=== PATIENT | male | born 1985 | race Caucasian/White ===

== ENCOUNTER 2017-04-05 14:19 | Inpatient (IN) | payer MEDICAID, OTHER ==
[2017-04-05 14:33] VITALS: BMI 28.4
--- NOTE | 2017-04-05 15:04 | C.PDOC ---
History Of Present Illness 31 y/o male with a hx of liver cirrhosis and ascites from alcohol abuse, presents to the ER c/o worsening abdominal distention. Patient admits that his last drink was 3 weeks prior. Denies fever, chills, chest pain, SOB, or any other complaints. Time Seen by Provider: 04/05/17 14:35 Chief Complaint (Nursing): Abdominal Pain History Per: Patient History/Exam Limitations: no limitations Onset/Duration Of Symptoms: Days Current Symptoms Are (Timing): Still Present Severity: Mild Associated Symptoms: denies: Fever, Chills Additional History Per: Patient Past Medical History Reviewed: Historical Data, Nursing Documentation, Vital Signs Vital Signs: Last Vital Signs Temp 97.9 F 04/05/17 14:38 Pulse 104 H 04/05/17 14:38 Resp 20 04/05/17 14:38 BP 117/76 04/05/17 14:38 Pulse Ox 97 04/05/17 16:20 - Medical History PMH: Denies: Chronic Kidney Disease - [facility] Procedures DRAINAGE OF PERITONEAL CAVITY, PERCUTANEOUS APPROACH (03/21/17) OCCLUSION ESOPHAGEAL VEIN W EXTRALUM DEV, PERC ENDO (03/21/17) Family History: States: Unknown Family Hx - Social History Hx Tobacco Use: No Hx Alcohol Use: Yes Hx Substance Use: No (last cocaine use 10 year ago) - Immunization History Hx Tetanus Toxoid Vaccination: No Hx Influenza Vaccination: No Hx Pneumococcal Vaccination: No Review Of Systems Except As Marked, All Systems Reviewed And Found Negative. Constitutional: Negative for: Fever, Chills Cardiovascular: Negative for: Chest Pain Respiratory: Negative for: Shortness of Breath Gastrointestinal: Positive for: Other (Abdominal distention) Physical Exam - Physical Exam Appears: Non-toxic, No Acute Distress Skin: Warm, Dry Head: Atraumatic, Normacephalic Eye(s): bilateral: Scleral Icterus Oral Mucosa: Moist Throat: Normal, No Erythema Chest: Symmetrical Cardiovascular: Rhythm Regular, No Murmur Respiratory: Normal Breath Sounds, No Rales, No Rhonchi, No Wheezing Gastrointestinal/Abdominal: Soft, No Tenderness, Distention Back: Normal Inspection, No CVA Tenderness Extremity: No Deformity, Swelling (Lower extremity swelling) Pulses: Left Dorsalis Pedis: Normal, Right Dorsalis Pedis: Normal Neurological/Psych: Oriented x3 ED Course And Treatment - Laboratory Results Result Diagrams: 04/05/17 15:38 04/05/17 15:38 Lab Interpretation: Abnormal ECG: Interpreted By Me ECG Rhythm: Sinus Rhythm ECG Interpretation: No Acute Changes Rate From EC O2 Sat by Pulse Oximetry: 97 (RA) Pulse Ox Interpretation: Normal - Radiology CXR: Viewed By Me, Read By Radiologist - Other Rad No standard instances X-Ray: Viewed By Me, Read By Radiologist Interpretation: FINDINGS: LUNGS: The right basilar infiltrate is appreciated in both frontal and lateral views with linear atelectasis identified at the left base versus fibrosis. No additional infiltrate otherwise. Cardiac size is upper limits normal. There is no pulmonary vascular derangement or pneumothorax identified. CARDIOVASCULAR: Normal. OSSEOUS STRUCTURES: No significant abnormalities. VISUALIZED UPPER ABDOMEN: Normal. OTHER FINDINGS: None. IMPRESSION: Limited right basilar infiltrate favored over atelectasis. Clinically correlate further. No pleural effusion bilaterally. Linear atelectasis or fibrosis left base. Progress Note: labs ordered Reassessment Condition: Unchanged - Physician Consult Information Physician Contacted: Charline Keller Outcome Of Conversation: admit Medical Decision Making Medical Decision Making: Plans: * EKG * Blood labs * CXR * IV fluids * UA Disposition Discussed With : Charline Keller Doctor Will See Patient In The: Hospital - Disposition Disposition: HOSPITALIZED Disposition Time: 16:20 Condition: STABLE - POA Present On Arrival: None - Clinical Impression Clinical Impression: Abdominal bloating, Coagulopathy, Liver failure, Ascites - Scribe Statement The provider has reviewed the documentation as recorded by the Aungibe Yessi Grey All medical record entries made by the Scribe were at my direction and personally dictated by me. I have reviewed the chart and agree that the record accurately reflects my personal performance of the history, physical exam, medical decision making, and the department course for this patient. I have also personally directed, reviewed, and agree with the discharge instructions and disposition. Decision To Admit - Pt Status Changed To: Hospital Disposition Of: Inpatient - Admit Certification Admit to Inpatient:: After my assessment, the patient will require hospitalization for at least two midnights. This is because of the severity of symptoms shown, intensity of services needed, and/or the medical risk in this patient being treated as an outpatient. - InPatient: Physician Admission Certification:: Ascites. coagulopathy - . Bed Request Type: Regular Admitting Physician: Charline Keller Patient Diagnosis: Abdominal bloating, Coagulopathy, Liver failure, Ascites
--- NOTE | 2017-04-05 15:36 | RAD ---
HISTORY: SOB COMPARISON: No prior. TECHNIQUE: Chest PA and lateral FINDINGS: LUNGS: The right basilar infiltrate is appreciated in both frontal and lateral views with linear atelectasis identified at the left base versus fibrosis. No additional infiltrate otherwise. Cardiac size is upper limits normal. There is no pulmonary vascular derangement or pneumothorax identified. CARDIOVASCULAR: Normal. OSSEOUS STRUCTURES: No significant abnormalities. VISUALIZED UPPER ABDOMEN: Normal. OTHER FINDINGS: None. IMPRESSION: Limited right basilar infiltrate favored over atelectasis. Clinically correlate further. No pleural effusion bilaterally. Linear atelectasis or fibrosis left base.
[2017-04-05 15:49] LABS: BASO # 0.1 K/uL (0.0-0.2); BASO % 1.1 % (0.0-2.0); EOS # 0.1 K/uL (0.0-0.7); EOS % 0.9 % (0.0-4.0); HEMATOCRIT 31.1 % (35.0-51.0); LYMPH # 0.7 K/uL (1.0-4.3); MEAN CORPUSCULAR HEMOGLOBIN 34.9 pg (27.0-31.0); MEAN CORPUSCULAR HGB CONC 33.9 g/dL (33.0-37.0); MEAN PLATELET VOLUME 9.6 fL (7.2-11.7); MONO # 1.2 K/uL (0.0-0.8); MONO % 13.3 % (0.0-10.0); PLATELET COUNT 138 K/uL (130-400); RED CELL DISTRIBUTION WIDTH 19.8 % (11.5-14.5); WHITE BLOOD COUNT 9.3 K/uL (4.8-10.8)
[2017-04-05 15:59] LABS: INR 2.3
[2017-04-05 16:24] LABS: ALB/GLOB RATIO 0.5 (1.0-2.1); ALCOHOL SERUM < 10 mg/dl (0-10); ALKALINE PHOSPHATASE 166 U/L (38-126); ALT/SGPT 74 U/L (21-72); AST/SGOT 146 U/L (17-59); BILIRUBIN,TOTAL 20.2 mg/dL (0.2-1.3); BLOOD UREA NITROGEN 12 mg/dL (9-20); CALCIUM 7.6 mg/dl (8.6-10.4); CARBON DIOXIDE 20 mmol/L (22-30); CHLORIDE 103 mmol/L (98-107); GFR AFRICAN-AMERICAN > 60; GLUCOSE,RANDOM 73 mg/dL (75-110); POTASSIUM 3.5 mmol/L (3.6-5.2); SODIUM 131 mmol/L (132-148); TOTAL PROTEIN 9.3 g/dL (6.3-8.3)
[2017-04-05 16:34] LABS: NEUTROPHIL 75 % (50-75); TOTAL CELLS COUNTED 100
[2017-04-05 16:35] LABS: LARGE PLATELETS PRESENT
--- NOTE | 2017-04-05 18:44 | CP.PCM.HP ---
<BartoloTiara - Last Filed: 04/05/17 18:55> History of Present Illness - History of Present Illness History of Present Illness: CC: "Fluid in my belly" HPI: 31 year old male with PMH liver cirrhosis 2/2 alcoholism presents to the ED for worsening ascites that started on Monday. Patient says he was here recently with the same thing and he had the fluid drained which made him feel much better. He admits to recent hospitalization at [facility] this week and says they gave him aldactone and lactulose and sent him home. Patient says he wants this drained again. He is also having some LE swelling that he says was here on last admission with cellulitis but the cellulitis has since resolved. Denies fever, nausea, vomiting, diarrhea or constipation, chest pain, dizziness , headache, shortness of breath, chest pain or abdominal pain. PMD: denies Past Medical History: Cirrhosis 2/2 alcoholism Past Surgical History: Denies Medications: aldactone 25 mg BID; Lactulose Allergies: NKDA Family History: Denies Social History: works as a cook 6x per week; previously one pint of vodka per day but says he quit after his last admission; denies smoking; per previous records, used cocaine in the past. Lives in an apartment alone. Present on Admission - Present on Admission Any Indicators Present on Admission: No Review of Systems - Review of Systems All systems: reviewed and no additional remarkable complaints except (as per HPI ) Past Patient History - Past Medical History & Family History Past Medical History?: Yes - Past Social History Smoking Status: Never Smoked - CARDIAC Hx Cardiac Disorders: No - PULMONARY Hx Respiratory Disorders: No - NEUROLOGICAL Hx Neurological Disorder: No - HEENT Hx HEENT Problems: No - RENAL Hx Chronic Kidney Disease: No - ENDOCRINE/METABOLIC Hx Endocrine Disorders: No - HEMATOLOGICAL/ONCOLOGICAL Hx Blood Disorders: No - INTEGUMENTARY Hx Dermatological Problems: No - MUSCULOSKELETAL/RHEUMATOLOGICAL Hx Musculoskeletal Disorders: No - GASTROINTESTINAL Hx Gastrointestinal Disorders: No - GENITOURINARY/GYNECOLOGICAL Hx Genitourinary Disorders: No - PSYCHIATRIC Hx Substance Use: No (last cocaine use 10 year ago) - SURGICAL HISTORY Hx Surgeries: No Hx Abdominal Aortic Aneurysm Repair: No - ANESTHESIA Hx Anesthesia: No Meds Allergies/Adverse Reactions: Allergies Allergy/AdvReac Type Severity Reaction Status Date / Time No Known Allergies Allergy Verified 03/20/17 21:33 Physical Exam - Constitutional Appears: Non-toxic, No Acute Distress - Head Exam Head Exam: ATRAUMATIC, NORMAL INSPECTION, NORMOCEPHALIC - Eye Exam Eye Exam: EOMI, Scleral icterus - Respiratory Exam Respiratory Exam: Clear to Auscultation Bilateral, NORMAL BREATHING PATTERN. absent: Accessory Muscle Use, Rales, Rhonchi, Wheezes, Respiratory Distress - Cardiovascular Exam Cardiovascular Exam: RRR, +S1, +S2. absent: Diastolic murmur, Gallop, Rubs, Systolic Murmur - GI/Abdominal Exam GI & Abdominal Exam: Distended, Normal Bowel Sounds, Soft. absent: Tenderness Additional comments: Ascites - Extremities Exam Extremities exam: Positive for: pedal edema. Negative for: calf tenderness - Neurological Exam Neurological exam: Alert, Oriented x3 - Psychiatric Exam Psychiatric exam: Normal Affect, Normal Mood - Skin Skin Exam: Dry, Intact, Warm Additional comments: Jaundice Results - Vital Signs Recent Vital Signs: Last Vital Signs Temp 98.5 F 04/05/17 17:53 Pulse 95 H 04/05/17 17:53 Resp 20 04/05/17 17:53 BP 122/74 04/05/17 17:53 Pulse Ox 97 04/05/17 17:53 - Labs Result Diagrams: 04/05/17 15:38 04/05/17 15:38 Labs: Laboratory Results - last 24 hr 04/05/17 04/05/17 04/05/17 15:38 15:38 15:38 WBC 9.3 RBC 3.01 L Hgb 10.5 L Hct 31.1 L MCV 103.0 H D MCH 34.9 H MCHC 33.9 RDW 19.8 H Plt Count 138 MPV 9.6 Neut % (Auto) 77.7 H Lymph % (Auto) 7.0 L [place] % (Auto) 13.3 H Eos % (Auto) 0.9 Baso % (Auto) 1.1 Neut # 7.3 H Lymph # 0.7 L [place] # 1.2 H Eos # 0.1 Baso # 0.1 Neutrophils % (Manual) 75 Band Neutrophils % 1 Lymphocytes % (Manual) 8 L Monocytes % (Manual) 16 H Platelet Estimate Normal Large Platelets Present Hypochromasia (manual) Slight Target Cells Slight [place] Cells Slight PT 26.7 H INR 2.3 APTT 43 H Sodium 131 L Potassium 3.5 L Chloride 103 Carbon Dioxide 20 L Anion Gap 12 BUN 12 Creatinine 0.6 L Est GFR ( Amer) > 60 Est GFR (Non-Af Amer) > 60 Random Glucose 73 L Calcium 7.6 L Total Bilirubin 20.2 H AST 146 H D ALT 74 H D Alkaline Phosphatase 166 H Ammonia NT-Pro-B Natriuret Pep 148 Total Protein 9.3 H Albumin 3.1 L Globulin 6.1 H Albumin/Globulin Ratio 0.5 L Lipase 92 Alcohol, Quantitative < 10 04/05/17 15:38 WBC RBC Hgb Hct MCV MCH MCHC RDW Plt Count MPV Neut % (Auto) Lymph % (Auto) [place] % (Auto) Eos % (Auto) Baso % (Auto) Neut # Lymph # [place] # Eos # Baso # Neutrophils % (Manual) Band Neutrophils % Lymphocytes % (Manual) Monocytes % (Manual) Platelet Estimate Large Platelets Hypochromasia (manual) Target Cells [place] Cells PT INR APTT Sodium Potassium Chloride Carbon Dioxide Anion Gap BUN Creatinine Est GFR ( Amer) Est GFR (Non-Af Amer) Random Glucose Calcium Total Bilirubin AST ALT Alkaline Phosphatase Ammonia 12 NT-Pro-B Natriuret Pep Total Protein Albumin Globulin Albumin/Globulin Ratio Lipase Alcohol, Quantitative Assessment & Plan (1) Ascites Assessment and Plan: * Therapeutic paracentesis performed and 4L removed * Albumin 12.5 in 50 ml x2 * Lasix * Aldactone * Monitor BP Status: Acute (2) Alcoholic cirrhosis Assessment and Plan: * See above Status: Chronic (3) Edema, lower extremity Assessment and Plan: * lasix 40 mg PO QD * spironolactone 25 mg PO BID Status: Chronic (4) Anemia Assessment and Plan: * monitor Status: Chronic (5) Coagulopathy Assessment and Plan: * FFP * Vitamin K * Monitor for bleeding Status: Acute (6) Prophylactic measure Assessment and Plan: * SCDs contraindicated 2/2 LE edema * Heparin contraindicated 2/2 anemia and coagulopathy Status: Acute Procedures Attestation:: I certify that I have explained the specified Operation(s) or Procedure(s), risks, benefits and reasonable alternatives to the Patient and/or other person responsible. The opportunity was given to ask questions and all questions answered - Paracentesis Consent Obtained: written consent Indication: Ascites Procedure: therapeutic paracentesis Location: RLQ Local Anesthetic Used: lidocaine 1% <Stanley Perdomo H - Last Filed: 04/06/17 07:39> Results - Vital Signs Recent Vital Signs: Last Vital Signs Temp 98.3 F 04/06/17 07:34 Pulse 94 H 04/06/17 07:34 Resp 20 04/06/17 07:34 BP 98/60 L 04/06/17 07:34 Pulse Ox 97 04/06/17 07:34 - Labs Result Diagrams: 04/05/17 15:38 04/05/17 15:38 Labs: Laboratory Results - last 24 hr 04/05/17 04/05/17 04/05/17 15:38 15:38 15:38 WBC 9.3 RBC 3.01 L Hgb 10.5 L Hct 31.1 L MCV 103.0 H D MCH 34.9 H MCHC 33.9 RDW 19.8 H Plt Count 138 MPV 9.6 Neut % (Auto) 77.7 H Lymph % (Auto) 7.0 L [place] % (Auto) 13.3 H Eos % (Auto) 0.9 Baso % (Auto) 1.1 Neut # 7.3 H Lymph # 0.7 L [place] # 1.2 H Eos # 0.1 Baso # 0.1 Neutrophils % (Manual) 75 Band Neutrophils % 1 Lymphocytes % (Manual) 8 L Monocytes % (Manual) 16 H Platelet Estimate Normal Large Platelets Present Hypochromasia (manual) Slight Target Cells Slight [place] Cells Slight PT 26.7 H INR 2.3 APTT 43 H Sodium 131 L Potassium 3.5 L Chloride 103 Carbon Dioxide 20 L Anion Gap 12 BUN 12 Creatinine 0.6 L Est GFR ( Amer) > 60 Est GFR (Non-Af Amer) > 60 Random Glucose 73 L Calcium 7.6 L Total Bilirubin 20.2 H AST 146 H D ALT 74 H D Alkaline Phosphatase 166 H Ammonia NT-Pro-B Natriuret Pep 148 Total Protein 9.3 H Albumin 3.1 L Globulin 6.1 H Albumin/Globulin Ratio 0.5 L Lipase 92 Urine Color Urine Clarity Urine pH Ur Specific [place] Urine Protein Urine Glucose (UA) Urine Ketones Urine Blood Urine Nitrate Urine Bilirubin Urine Urobilinogen Ur Leukocyte Esterase Urine WBC (Auto) Urine RBC (Auto) Ur Squamous Epith Cells Hyaline Casts Alcohol, Quantitative < 10 Blood Type Antibody Screen 04/05/17 04/05/17 04/06/17 15:38 20:35 01:41 WBC RBC Hgb Hct MCV MCH MCHC RDW Plt Count MPV Neut % (Auto) Lymph % (Auto) [place] % (Auto) Eos % (Auto) Baso % (Auto) Neut # Lymph # [place] # Eos # Baso # Neutrophils % (Manual) Band Neutrophils % Lymphocytes % (Manual) Monocytes % (Manual) Platelet Estimate Large Platelets Hypochromasia (manual) Target Cells [place] Cells PT INR APTT Sodium Potassium Chloride Carbon Dioxide Anion Gap BUN Creatinine Est GFR ( Amer) Est GFR (Non-Af Amer) Random Glucose Calcium Total Bilirubin AST ALT Alkaline Phosphatase Ammonia 12 NT-Pro-B Natriuret Pep Total Protein Albumin Globulin Albumin/Globulin Ratio Lipase Urine Color [place] Urine Clarity Hazy Urine pH 5.0 Ur Specific [place] 1.024 Urine Protein Negative Urine Glucose (UA) Normal Urine Ketones Negative Urine Blood Trace H Urine Nitrate Negative Urine Bilirubin 2+ H Urine Urobilinogen 4.0 Ur Leukocyte Esterase Neg Urine WBC (Auto) 1 Urine RBC (Auto) 3 Ur Squamous Epith Cells 1 Hyaline Casts 6-10 H Alcohol, Quantitative Blood Type O POSITIVE Antibody Screen Negative Attending/Attestation - Attestation I have personally seen and examined this patient.: Yes I have fully participated in the care of the patient.: Yes I have reviewed all pertinent clinical information: Yes Notes (Text): 04/06/17 07:39 Medical attending: The patient was seen and examined by me, agree with the above note by medical social worker. The patient was recently here and signed out AMA. He then went to [facility] for the distended abdomen secondary to liver cirrhosis and ascites and was given some medication there that he had not yet started. In the emergency room we did an ultrasound-guided paracentesis. We removed a little over 4.2 L. We had received consent from the patient, the area was found with ultrasound. We anesthetized and sterilized the area with chlorhexidine and 1% lidocaine respectively. A blue sterile field was placed again on the area and for the protection of patient. The guide needle was introduced and was successfully able to aspirate ascites fluid. The tubing was connected to the apparatus into the 1 L suction files. We checked the patient's blood pressure as we were doing this. And he was stable. The patient tolerated the procedure quite well and asked for a meal to eat after it was done. He was then given several runs of IV albumen and vitamin K Thank you very much, Stanley Perdomo
[2017-04-05] MEDS ORDERED: Potassium Chloride 20 mEq ER Tab PO ONE (19:39)
[2017-04-05] MEDS: Albumin Human 25% (12.5 gm/50 ml) IV SCH ×2 (19:54→21:00)
[2017-04-05 23:25] VITALS: RESP 20; TEMP 98.3; O2SAT 97
[2017-04-06 02:34] LABS: RBC URINE 3 /hpf (0-3); URINE BILIRUBIN 2+ (NEGATIVE); URINE COLOR Amber (YELLOW); URINE GLUCOSE (UA) NORMAL (Normal); URINE KETONE NEGATIVE (NEGATIVE); URINE LEUKOCYTE ESTERASE NEG Leu/uL (Negative); URINE PROTEIN NEGATIVE (NEGATIVE); WBC URINE 1 /hpf (0-5)
[2017-04-06 03:12] LABS: URINE BLOOD TRACE (NEGATIVE)
[2017-04-06 07:37] VITALS: BP 98/60; PULSE 94
[2017-04-06 08:51] LABS: BASO % 0.4 % (0.0-2.0); EOS # 0.2 K/uL (0.0-0.7); EOS % 2.1 % (0.0-4.0); HEMATOCRIT 30.7 % (35.0-51.0); LYMPH # 0.9 K/uL (1.0-4.3); LYMPH % 11.7 % (20.0-40.0); MEAN CELL VOLUME 102.6 fL (80.0-94.0); MEAN CORPUSCULAR HEMOGLOBIN 34.6 pg (27.0-31.0); MEAN CORPUSCULAR HGB CONC 33.7 g/dL (33.0-37.0); MEAN PLATELET VOLUME 9.6 fL (7.2-11.7); MONO # 0.7 K/uL (0.0-0.8); MONO % 9.4 % (0.0-10.0); RED CELL DISTRIBUTION WIDTH 19.5 % (11.5-14.5); WHITE BLOOD COUNT 7.7 K/uL (4.8-10.8)
[2017-04-06 09:21] LABS: ALB/GLOB RATIO 0.7 (1.0-2.1); ALKALINE PHOSPHATASE 151 U/L (38-126); ALT/SGPT 64 U/L (21-72); AST/SGOT 125 U/L (17-59); BILIRUBIN,TOTAL 16.8 mg/dL (0.2-1.3); BLOOD UREA NITROGEN 11 mg/dL (9-20); CALCIUM 7.3 mg/dl (8.6-10.4); CARBON DIOXIDE 20 mmol/L (22-30); CHLORIDE 103 mmol/L (98-107); GFR AFRICAN-AMERICAN > 60; GLUCOSE,RANDOM 115 mg/dL (75-110); POTASSIUM 3.9 mmol/L (3.6-5.2); SODIUM 131 mmol/L (132-148); TOTAL PROTEIN 7.1 g/dL (6.3-8.3)
--- NOTE | 2017-04-06 13:14 | CP.PCM.DIS ---
<Francisco Javier Mitchell - Last Filed: 04/06/17 13:10> Provider - Provider Date of Admission: 04/05/17 16:14 Attending physician: Charline Keller DO Primary care physician: None Consults: None Time Spent in preparation of Discharge (in minutes): 45 Diagnosis - Discharge Diagnosis (1) Ascites Status: Resolved Priority: High (2) Alcoholic cirrhosis Status: Acute Priority: High Hospital Course - Lab Results Lab Results: Most Recent Lab Values WBC 7.7 K/uL (4.8-10.8) 04/06/17 08:38 RBC 3.00 Mil/uL (4.40-5.90) L 04/06/17 08:38 Hgb 10.4 g/dL (12.0-18.0) L 04/06/17 08:38 Hct 30.7 % (35.0-51.0) L 04/06/17 08:38 MCV 102.6 fL (80.0-94.0) H 04/06/17 08:38 MCH 34.6 pg (27.0-31.0) H 04/06/17 08:38 MCHC 33.7 g/dL (33.0-37.0) 04/06/17 08:38 RDW 19.5 % (11.5-14.5) H 04/06/17 08:38 Plt Count 118 K/uL (130-400) L D 04/06/17 08:38 MPV 9.6 fL (7.2-11.7) 04/06/17 08:38 Neut % (Auto) 76.4 % (50.0-75.0) H 04/06/17 08:38 Lymph % (Auto) 11.7 % (20.0-40.0) L 04/06/17 08:38 Elmore % (Auto) 9.4 % (0.0-10.0) 04/06/17 08:38 Eos % (Auto) 2.1 % (0.0-4.0) 04/06/17 08:38 Baso % (Auto) 0.4 % (0.0-2.0) 04/06/17 08:38 Neut # 5.9 K/uL (1.8-7.0) 04/06/17 08:38 Lymph # 0.9 K/uL (1.0-4.3) L 04/06/17 08:38 Elmore # 0.7 K/uL (0.0-0.8) 04/06/17 08:38 Eos # 0.2 K/uL (0.0-0.7) 04/06/17 08:38 Baso # 0.0 K/uL (0.0-0.2) 04/06/17 08:38 Neutrophils % (Manual) 75 % (50-75) 04/05/17 15:38 Band Neutrophils % 1 % (0-2) 04/05/17 15:38 Lymphocytes % (Manual) 8 % (20-40) L 04/05/17 15:38 Monocytes % (Manual) 16 % (0-10) H 04/05/17 15:38 Differential Comment 04/06/17 08:38 Platelet Estimate Normal (NORMAL) 04/05/17 15:38 Large Platelets Present 04/05/17 15:38 Hypochromasia (manual) Slight 04/05/17 15:38 Target Cells Slight 04/05/17 15:38 Roselle Cells Slight 04/05/17 15:38 PT 26.7 SECONDS (9.7-12.2) H 04/05/17 15:38 INR 2.3 04/05/17 15:38 APTT 43 SECONDS (21-34) H 04/05/17 15:38 Sodium 131 mmol/L (132-148) L 04/06/17 08:38 Potassium 3.9 mmol/L (3.6-5.2) 04/06/17 08:38 Chloride 103 mmol/L (98-107) 04/06/17 08:38 Carbon Dioxide 20 mmol/L (22-30) L 04/06/17 08:38 Anion Gap 13 (10-20) 04/06/17 08:38 BUN 11 mg/dL (9-20) 04/06/17 08:38 Creatinine 0.5 mg/dL (0.8-1.5) L 04/06/17 08:38 Est GFR ( Amer) > 60 04/06/17 08:38 Est GFR (Non-Af Amer) > 60 04/06/17 08:38 Random Glucose 115 mg/dL (75-110) H 04/06/17 08:38 Calcium 7.3 mg/dl (8.6-10.4) L 04/06/17 08:38 Total Bilirubin 16.8 mg/dL (0.2-1.3) H 04/06/17 08:38 AST 125 U/L (17-59) H 04/06/17 08:38 ALT 64 U/L (21-72) 04/06/17 08:38 Alkaline Phosphatase 151 U/L (38-126) H 04/06/17 08:38 Ammonia 12 umol/L (9-33) 04/05/17 15:38 NT-Pro-B Natriuret Pep 148 pg/mL (0-450) 04/05/17 15:38 Total Protein 7.1 g/dL (6.3-8.3) 04/06/17 08:38 Albumin 2.8 g/dL (3.5-5.0) L 04/06/17 08:38 Globulin 4.3 gm/dL (2.2-3.9) H 04/06/17 08:38 Albumin/Globulin Ratio 0.7 (1.0-2.1) L 04/06/17 08:38 Lipase 92 U/L (23-300) 04/05/17 15:38 Urine Color Tawanna (YELLOW) 04/06/17 01:41 Urine Clarity Hazy (Clear) 04/06/17 01:41 Urine pH 5.0 (5.0-8.0) 04/06/17 01:41 Ur Specific Cowley 1.024 (1.003-1.030) 04/06/17 01:41 Urine Protein Negative mg/dL (NEGATIVE) 04/06/17 01:41 Urine Glucose (UA) Normal mg/dL (Normal) 04/06/17 01:41 Urine Ketones Negative mg/dL (NEGATIVE) 04/06/17 01:41 Urine Blood Trace (NEGATIVE) H 04/06/17 01:41 Urine Nitrate Negative (NEGATIVE) 04/06/17 01:41 Urine Bilirubin 2+ (NEGATIVE) H 04/06/17 01:41 Urine Urobilinogen 4.0 mg/dL (0.2-1.0) 04/06/17 01:41 Ur Leukocyte Esterase Neg Radha/uL (Negative) 04/06/17 01:41 Urine WBC (Auto) 1 /hpf (0-5) 04/06/17 01:41 Urine RBC (Auto) 3 /hpf (0-3) 04/06/17 01:41 Ur Squamous Epith Cells 1 /hpf (0-5) 04/06/17 01:41 Hyaline Casts 6-10 /lpf (0-2) H 04/06/17 01:41 Alcohol, Quantitative < 10 mg/dl (0-10) 04/05/17 15:38 Blood Type O POSITIVE 04/05/17 20:35 Antibody Screen Negative 04/05/17 20:35 - Hospital Course Hospital Course: CC: "Fluid in my belly" HPI: 31 year old male with PMH liver cirrhosis 2/2 alcoholism presents to the ED for worsening ascites that started on Monday. Patient says he was here recently with the same thing and he had the fluid drained which made him feel much better. He [place] [facility] [place] says they gave him aldactone and lactulose and sent him home. Patient says he wants this drained again. He is also having some LE swelling that he says was here on last admission with cellulitis but the cellulitis has since resolved. Denies fever, nausea, vomiting, diarrhea or constipation, chest pain, dizziness , headache, shortness of breath, chest pain or abdominal pain. PMD: denies Past Medical History: Cirrhosis 2/2 alcoholism Past Surgical History: Denies Medications: aldactone 25 mg BID; Lactulose Allergies: NKDA Family History: Denies Social History: works as a cook 6x per week; previously one pint of vodka per day but says he quit after his last admission; denies smoking; per previous records, used cocaine in the past. Lives in an apartment alone. HOSPITAL COURSE: This patient presented with ascites. Therapeutic paracentesis was performed and about 4.2L was removed. He was given Albumin 12.5 in 50ml x2 as well as lasix and aldactone. He was given FFP and vitamin K after the paracentesis. Per attending Dr Perdomo's note: "The patient was recently here and signed out AMA. He then went to [facility] for the distended abdomen secondary to liver cirrhosis and ascites and was given some medication there that he had not yet started. In the emergency room we did an ultrasound-guided paracentesis. We removed a little over 4.2 L. We had received consent from the patient, the area was found with ultrasound. We anesthetized and sterilized the area with chlorhexidine and 1% lidocaine respectively. A blue sterile field was placed again on the area and for the protection of patient. The guide needle was introduced and was successfully able to aspirate ascites fluid. The tubing was connected to the apparatus into the 1 L suction files. We checked the patient's blood pressure as we were doing this. And he was stable. The patient tolerated the procedure quite well and asked for a meal to eat after it was done. He was then given several runs of IV albumen and vitamin K" Discharge Exam - Head Exam Head Exam: ATRAUMATIC, NORMAL INSPECTION, NORMOCEPHALIC - Additional Findings Additional findings: - Constitutional Appears: Non-toxic, No Acute Distress - Head Exam Head Exam: ATRAUMATIC, NORMAL INSPECTION, NORMOCEPHALIC - Eye Exam Eye Exam: EOMI, Scleral icterus - Respiratory Exam Respiratory Exam: Clear to Auscultation Bilateral, NORMAL BREATHING PATTERN. absent: Accessory Muscle Use, Rales, Rhonchi, Wheezes, Respiratory Distress - Cardiovascular Exam Cardiovascular Exam: RRR, +S1, +S2. absent: Diastolic murmur, Gallop, Rubs, Systolic Murmur - GI/Abdominal Exam GI & Abdominal Exam: Distended, Normal Bowel Sounds, Soft. absent: Tenderness Additional comments: Ascites - Extremities Exam Extremities exam: Positive for: pedal edema. Negative for: calf tenderness - Neurological Exam Neurological exam: Alert, Oriented x3 - Psychiatric Exam Psychiatric exam: Normal Affect, Normal Mood - Skin Skin Exam: Dry, Intact, Warm Additional comments: Jaundice Discharge Plan - Discharge Medications Prescriptions: Furosemide [Lasix] 40 mg PO DAILY 30 Days #30 tab Propranolol [Inderal] 10 mg PO DAILY 30 Days #30 tab - Follow Up Plan Condition: STABLE Disposition: HOME/ ROUTINE Instructions: Propranolol (By mouth), Furosemide (By mouth), Cirrhosis (DC), Ascites (ED) Additional Instructions: Patient is medically stable for discharge. Patient will be given a script for the following NEW medications which he should take as instructed: Furosemide 40mg PO QD, take 1 tablet by mouth once a day Propanalol 10mg PO QD, take 1 tablet by mouth once a day The patient is to resume his other medications, as labeled, which he already has with him, this includes: Spironolactone Lactulose The patient will need to follow up with a Primary Medical Doctor, within 1 week for continuation of medical management. If symptoms worsen or return, the patient is to return to the ER. <PerdomoStanley segura H - Last Filed: 04/06/17 14:29> Provider - Provider Date of Admission: 04/05/17 16:14 Attending physician: Charline Keller DO Hospital Course - Lab Results Lab Results: Most Recent Lab Values WBC 7.7 K/uL (4.8-10.8) 04/06/17 08:38 RBC 3.00 Mil/uL (4.40-5.90) L 04/06/17 08:38 Hgb 10.4 g/dL (12.0-18.0) L 04/06/17 08:38 Hct 30.7 % (35.0-51.0) L 04/06/17 08:38 MCV 102.6 fL (80.0-94.0) H 04/06/17 08:38 MCH 34.6 pg (27.0-31.0) H 04/06/17 08:38 MCHC 33.7 g/dL (33.0-37.0) 04/06/17 08:38 RDW 19.5 % (11.5-14.5) H 04/06/17 08:38 Plt Count 118 K/uL (130-400) L D 04/06/17 08:38 MPV 9.6 fL (7.2-11.7) 04/06/17 08:38 Neut % (Auto) 76.4 % (50.0-75.0) H 04/06/17 08:38 Lymph % (Auto) 11.7 % (20.0-40.0) L 04/06/17 08:38 Elmore % (Auto) 9.4 % (0.0-10.0) 04/06/17 08:38 Eos % (Auto) 2.1 % (0.0-4.0) 04/06/17 08:38 Baso % (Auto) 0.4 % (0.0-2.0) 04/06/17 08:38 Neut # 5.9 K/uL (1.8-7.0) 04/06/17 08:38 Lymph # 0.9 K/uL (1.0-4.3) L 04/06/17 08:38 Elmore # 0.7 K/uL (0.0-0.8) 04/06/17 08:38 Eos # 0.2 K/uL (0.0-0.7) 04/06/17 08:38 Baso # 0.0 K/uL (0.0-0.2) 04/06/17 08:38 Neutrophils % (Manual) 75 % (50-75) 04/05/17 15:38 Band Neutrophils % 1 % (0-2) 04/05/17 15:38 Lymphocytes % (Manual) 8 % (20-40) L 04/05/17 15:38 Monocytes % (Manual) 16 % (0-10) H 04/05/17 15:38 Differential Comment 04/06/17 08:38 Platelet Estimate Normal (NORMAL) 04/05/17 15:38 Large Platelets Present 04/05/17 15:38 Hypochromasia (manual) Slight 04/05/17 15:38 Target Cells Slight 04/05/17 15:38 Roselle Cells Slight 04/05/17 15:38 PT 26.7 SECONDS (9.7-12.2) H 04/05/17 15:38 INR 2.3 04/05/17 15:38 APTT 43 SECONDS (21-34) H 04/05/17 15:38 Sodium 131 mmol/L (132-148) L 04/06/17 08:38 Potassium 3.9 mmol/L (3.6-5.2) 04/06/17 08:38 Chloride 103 mmol/L (98-107) 04/06/17 08:38 Carbon Dioxide 20 mmol/L (22-30) L 04/06/17 08:38 Anion Gap 13 (10-20) 04/06/17 08:38 BUN 11 mg/dL (9-20) 04/06/17 08:38 Creatinine 0.5 mg/dL (0.8-1.5) L 04/06/17 08:38 Est GFR ( Amer) > 60 04/06/17 08:38 Est GFR (Non-Af Amer) > 60 04/06/17 08:38 Random Glucose 115 mg/dL (75-110) H 04/06/17 08:38 Calcium 7.3 mg/dl (8.6-10.4) L 04/06/17 08:38 Total Bilirubin 16.8 mg/dL (0.2-1.3) H 04/06/17 08:38 AST 125 U/L (17-59) H 04/06/17 08:38 ALT 64 U/L (21-72) 04/06/17 08:38 Alkaline Phosphatase 151 U/L (38-126) H 04/06/17 08:38 Ammonia 12 umol/L (9-33) 04/05/17 15:38 NT-Pro-B Natriuret Pep 148 pg/mL (0-450) 04/05/17 15:38 Total Protein 7.1 g/dL (6.3-8.3) 04/06/17 08:38 Albumin 2.8 g/dL (3.5-5.0) L 04/06/17 08:38 Globulin 4.3 gm/dL (2.2-3.9) H 04/06/17 08:38 Albumin/Globulin Ratio 0.7 (1.0-2.1) L 04/06/17 08:38 Lipase 92 U/L (23-300) 04/05/17 15:38 Urine Color Tawanna (YELLOW) 04/06/17 01:41 Urine Clarity Hazy (Clear) 04/06/17 01:41 Urine pH 5.0 (5.0-8.0) 04/06/17 01:41 Ur Specific Cowley 1.024 (1.003-1.030) 04/06/17 01:41 Urine Protein Negative mg/dL (NEGATIVE) 04/06/17 01:41 Urine Glucose (UA) Normal mg/dL (Normal) 04/06/17 01:41 Urine Ketones Negative mg/dL (NEGATIVE) 04/06/17 01:41 Urine Blood Trace (NEGATIVE) H 04/06/17 01:41 Urine Nitrate Negative (NEGATIVE) 04/06/17 01:41 Urine Bilirubin 2+ (NEGATIVE) H 04/06/17 01:41 Urine Urobilinogen 4.0 mg/dL (0.2-1.0) 04/06/17 01:41 Ur Leukocyte Esterase Neg Radha/uL (Negative) 04/06/17 01:41 Urine WBC (Auto) 1 /hpf (0-5) 04/06/17 01:41 Urine RBC (Auto) 3 /hpf (0-3) 04/06/17 01:41 Ur Squamous Epith Cells 1 /hpf (0-5) 04/06/17 01:41 Hyaline Casts 6-10 /lpf (0-2) H 04/06/17 01:41 Alcohol, Quantitative < 10 mg/dl (0-10) 04/05/17 15:38 Blood Type O POSITIVE 04/05/17 20:35 Antibody Screen Negative 04/05/17 20:35 Attending/Attestation - Attestation I have personally seen and examined this patient.: Yes I have fully participated in the care of the patient.: Yes I have reviewed all pertinent clinical information, including history, physical exam and plan: Yes Notes (Text): 04/06/17 14:29 Medical attending: Patient was seen and examined by me, agree with the above note by medical records coordinator. The patient did well overnight. As mentioned previously he had 4.2 L of ascites fluid removed yesterday. He reported eating well, but after was okay he also denied having any abdominal pain. Today we inspected the site of the insertion for the paracentesis and it looked dry and intact. He already has lactulose, Aldactone, the only thing he did not have his Lasix so we wrote him a prescription for that as well as also prescription for propranolol as he not too long ago in the recent history had upper GI bleed thank you Stanley Perdomo
[2017-04-06] MEDS ORDERED: Potassium Chloride 20 mEq ER Tab PO ONE (18:48)
--- NOTE | 2017-04-06 22:24 | CARD ---
APPROVED REPORT EKG Measurement Heart [id number] <Conclusion> Normal sinus rhythm Prolonged QT Abnormal ECG
== END 2017-04-06 16:44 | disposition home or self-care (01) | DRG 557 ==
LOC: C.ER 14:19 → C.9E 16:14 → C.3T 17:31
PROVIDERS: ADMIT Hospitalist; ATTEND Hospitalist
PROC: 0W9G3ZZ Drainage of Peritoneal Cavity, Percutaneous Approach (ICD-10-PCS; principal; 2017-04-05)
DX: K70.31 Alcoholic cirrhosis of liver with ascites (principal); K72.90 Hepatic failure, unspecified without coma; D68.9 Coagulation defect, unspecified; F10.288 Alcohol dependence with other alcohol-induced disorder; Y90.0 Blood alcohol level of less than 20 mg/100 ml

== ENCOUNTER 2017-04-13 07:45 | Emergency (ER) | payer SELFPAY ==
[2017-04-13 07:46] VITALS: BMI 28.4
[2017-04-13] MEDS ORDERED: Sodium Chloride 0.9% 1,000 ML IV ONE (07:48)
[2017-04-13] MEDS ORDERED: Pantoprazole 80 MG in Sodium Chloride 0.9% 100 ML IV STA (07:54)
--- NOTE | 2017-04-13 08:06 | C.PDOC ---
History Of Present Illness Patient BIBA for vomiting bright red blood for approx 2 hrs prior to arrival. Patient has h/o alcohol abuse, liver cirrhosis, ascites, esophageal varices. Patient given IV NS bolus 500ml and zofran 4mg IVP in the field. He is c/o diffuse abd pain. Time Seen by Provider: 04/13/17 07:48 Chief Complaint (Nursing): Abdominal Pain History Per: Patient, EMS History/Exam Limitations: clinical condition Onset/Duration Of Symptoms: Hrs (2 hrs) Current Symptoms Are (Timing): Still Present Severity: Moderate Location Of Pain/Discomfort: Diffuse Quality Of Discomfort: "Pain" Associated Symptoms: Nausea, Vomiting Past Medical History Reviewed: Historical Data, Nursing Documentation, Vital Signs Vital Signs: Last Vital Signs Temp 97.8 F 04/13/17 09:00 Pulse 90 04/13/17 09:00 Resp 13 04/13/17 09:00 BP 61/31 L 04/13/17 09:00 Pulse Ox 99 04/13/17 09:34 - Medical History Other PMH: liver cirrhosis, esophageal varices - [employer] Procedures DRAINAGE OF PERITONEAL CAVITY, PERCUTANEOUS APPROACH (04/05/17) OCCLUSION ESOPHAGEAL VEIN W EXTRALUM DEV, PERC ENDO (03/21/17) Family History: States: No Known Family Hx - Social History Hx Tobacco Use: No Hx Alcohol Use: Yes Hx Substance Use: No (last cocaine use 10 year ago) - Immunization History Hx Tetanus Toxoid Vaccination: No Hx Influenza Vaccination: No Hx Pneumococcal Vaccination: No Review Of Systems Except As Marked, All Systems Reviewed And Found Negative. Constitutional: Negative for: Fever, Chills Cardiovascular: Negative for: Chest Pain Respiratory: Negative for: Shortness of Breath Gastrointestinal: Positive for: Nausea, Vomiting, Hematemesis. Negative for: Abdominal Pain, Diarrhea, Hematochezia Genitourinary: Negative for: Dysuria, Hematuria Physical Exam - Physical Exam Appears: Non-toxic, In Acute Distress, Chronically Ill, Other (actively vomiting ) Skin: Jaundice Eye(s): bilateral: Scleral Icterus Oral Mucosa: Moist Cardiovascular: Rhythm Regular (tachycardic and regular ) Respiratory: Normal Breath Sounds, No Rales, No Rhonchi, No Wheezing Gastrointestinal/Abdominal: Bowel Sounds, Soft, Tenderness (ascites, diffuse TTP ), No Guarding, No Rebound, Ascites Extremity: Pedal Edema (+3 pitting edema B/L LEs) Neurological/Psych: Oriented x3 ED Course And Treatment - Laboratory Results Result Diagrams: 04/13/17 08:05 04/13/17 08:05 O2 Sat by Pulse Oximetry: 99 (RA) Pulse Ox Interpretation: Normal - Radiology CXR: Interpreted by Me, Viewed By Me (no acute infiltrates/effusions) Progress Note: Blood work, CXR, EKG ordered and reviewed. Patient given IV protonix bolus + drip, IV octreotide drip, 2 units PRBCs, IV NS bolus. Dr. Rojas's service called - as per fellow, Dr. Padilla is family health nurse practitioner today. 8:10am- Dr. Padilla's service called - Dr. Chi covering, pending call back. 8:20am - Bakery Demonstrator/ICU called, pending call back. 8:40am- Patient continues to become more hypotensive - blood available in 6 minutes, will insert central line. 8:29am- Spoke with Dr. Araujo, aware of patient and in agreement with current treatment plan. 9:00am- Patient became bradycardia and lost pulses - CPR started and epi x 4 given. Etomidate + Succinycholine given due to patient initially clenching jaw. Large amounts of blood coming out of mouth, ET tube, rectum - patient exsanguinated during code. Estimated blood loss approx 1 liter. Patient continued to be pulseless (checked with doppler) in PEA, time of called at 9:13am. Patient's exgirlfriend in ED and notified of his . Critical Care Time - Critical Care Note Total Time (in mins): 45 Documented critical care: time excludes all time spent performing seperately billable procedures. Disposition - Disposition Disposition: WITH WITHOUT AUTOPSY Disposition Time: 09:13 Condition: Forms: [facility] - Clinical Impression Clinical Impression: GI bleed, Cardiac arrest Proc: Central Venous Access - Time Performed Time Performed: 08:45 - Time Out Time Out: Side verified - Procedure Procedure: Central Line placement: Right Technique:: Seldinger technique, Ultrasound guidance, Femoral vein - Consent obtained Consent obtained: Emergent consent implied - Performed by Performed by: Attending Physician - Indications Indication(s):: Centrally admin. meds, Rapid fluid infusion, Hemodynamic monitoring Contraindications: coagulopathy Tube type:: Triple lumen - Number of Attempts Attempts: 2 - Line sutured in place Line sutured in place:: Yes - Patient tolerated procedure Patient Tolerated Procedure:: Well
[2017-04-13 08:11] LABS: BASO # 0.1 K/uL (0.0-0.2); EOS # 0.3 K/uL (0.0-0.7); LYMPH # 2.5 K/uL (1.0-4.3); MONO # 1.4 K/uL (0.0-0.8); RED CELL DISTRIBUTION WIDTH 18.1 % (11.5-14.5)
[2017-04-13 08:13] VITALS: TEMP 97.8
[2017-04-13 08:15] LABS: BASO % 0.5 % (0.0-2.0); HEMATOCRIT 14.8 % (35.0-51.0); LYMPH % 24.4 % (20.0-40.0); MEAN CELL VOLUME 104.5 fL (80.0-94.0); MEAN CORPUSCULAR HEMOGLOBIN 35.3 pg (27.0-31.0); MEAN CORPUSCULAR HGB CONC 33.8 g/dL (33.0-37.0); MEAN PLATELET VOLUME 10.8 fL (7.2-11.7); MONO % 13.7 % (0.0-10.0); WHITE BLOOD COUNT 10.3 K/uL (4.8-10.8)
[2017-04-13 08:21] LABS: INR 3.6
[2017-04-13 08:33] LABS: ALB/GLOB RATIO 0.6 (1.0-2.1); ALCOHOL SERUM < 10 mg/dl (0-10); ALKALINE PHOSPHATASE 87 U/L (38-126); ALT/SGPT 49 U/L (21-72); AST/SGOT 58 U/L (17-59); BILIRUBIN,TOTAL 8.5 mg/dL (0.2-1.3); BLOOD UREA NITROGEN 33 mg/dL (9-20); CALCIUM 6.4 mg/dl (8.6-10.4); CARBON DIOXIDE 16 mmol/L (22-30); CHLORIDE 107 mmol/L (98-107); GFR AFRICAN-AMERICAN > 60; GLUCOSE,RANDOM 124 mg/dL (75-110); POTASSIUM 5.1 mmol/L (3.6-5.2); SODIUM 129 mmol/L (132-148); TOTAL PROTEIN 4.4 g/dL (6.3-8.3)
[2017-04-13] MEDS ORDERED: Etomidate 20 mg/10ml Inj IV ONE (09:00)
[2017-04-13] MEDS ORDERED: Succinylcholine Chloride 20 mg/ml Syr (5 ml) IV ONE (09:00)
[2017-04-13 09:23] VITALS: O2SAT 99
[2017-04-13 09:50] VITALS: BP 61/31; PULSE 90; RESP 13
--- NOTE | 2017-04-13 10:48 | RAD ---
PROCEDURE: CHEST RADIOGRAPH, 1 VIEW HISTORY: upright please - hematemesis COMPARISON: Comparison is made to the previous study dated 04/05/2017 FINDINGS: LUNGS: Re- demonstration of right lung base opacities may represent atelectasis or less likely infiltrate since the previous exam. No evidence of significant interval change otherwise. PLEURA: No pneumothorax or pleural fluid seen. CARDIOVASCULAR: Normal. OSSEOUS STRUCTURES: No significant abnormalities. VISUALIZED UPPER ABDOMEN: No radiographic evidence of free air in the upper abdomen. OTHER FINDINGS: None. IMPRESSION: No significant interval change since the previous exam.
--- NOTE | 2017-04-15 16:57 | CARD ---
APPROVED REPORT EKG Measurement Heart [id number] <Conclusion> Normal sinus rhythm Nonspecific ST abnormality Prolonged QT Abnormal ECG
== END 2017-04-13 12:10 ==
LOC: C.ER 07:45 → C.9E 08:38 → UNDOADMIN 08:38 → C.ER 12:10
DX: I46.9 Cardiac arrest, cause unspecified (principal); K92.2 Gastrointestinal hemorrhage, unspecified; K74.60 Unspecified cirrhosis of liver
CPT/HCPCS: 36430; 36556; 71010; 80053; 82550; 82553; 82948; 84484; 85025; 85610; 85730; 86850; 86900; 86920; 93005; 96365; 96368; 96375; 96376; 99285; C9113; G0480; J0171; J2354; J2405; J7040; P9051